=== PATIENT | female | born 1975 | race Caucasian/White ===

== ENCOUNTER 2025-02-17 12:28 | Outpatient (REF) | payer OTHER, SELFPAY ==
--- NOTE | ~2025-02-17 | XR_ITS ---
EXAMINATION: XR CERVICAL SPINE CLINICAL INFORMATION: M54.12 - Radiculopathy, cervical region COMPARISON: None available. TECHNIQUE: AP, and lateral: Flexion, neutral, and extension view x-rays of the cervical spine. FINDINGS: There is no prevertebral soft tissue swelling. The results of this. Anterior fixation there is noted at C5-6 with interbody spacer. There is prosthetic disc at C6-7. Flexion and extension, there is no sign of instability. XR/XR cervical spine 2V IMPRESSION: There is mild reversal of cervical lordosis. This can be related to degenerative changes, positioning, muscle spasm, or posterior soft tissue injury. C5-6 anterior fixation and interbody spacer. C6-7 disc prosthesis. No sign of instability. Electronically signed by: Manuel Munoz MD 02/17/2025 05:44 PM EDT
== END 2025-02-17 12:29 | disposition home or self-care (01) ==
LOC: HO.HOSX 12:28
PROVIDERS: PCP Internal Medicine; Visit Provider Neurological Surgery
DX: Z98.1 Arthrodesis status (principal); M54.12 Radiculopathy, cervical region
CPT/HCPCS: 72040

== ENCOUNTER 2025-02-17 12:28 | Outpatient (AMB) | payer OTHER, SELFPAY ==
--- NOTE | 2025-02-17 12:54 | A.SPINEOV_ITS ---
Vital Signs 02/17/25 12:57 Height 5 ft 4 in Weight 195 lb BMI 33.5 Intake Visit Reasons: Neck pain Intake Note: Ms. Barajas is here today c/o neck pain. Statistical Methods Professor Required: No Allergies terfenadine Allergy (Severe, Verified 02/17/25 12:58) Unknown tramadol Allergy (Severe, Verified 02/17/25 12:58) Unknown Physical Exam Vital Signs: BMI result Body Mass Index 33.5 Assessment & Plan Assessment & Plan (1) Cervical radiculopathy: Code(s): M54.12 - Radiculopathy, cervical region Category: Medical Plan: Dear colleague Thank you for referring Migdaila Barajas to the office today with a chief complaint of neck pain radiating down right arm. HPI: This 50-year-old female with a history of cervical fusion on 06/05/2012 and a lumbar fusion on 11/04/2008 presents with neck pain that radiates through her shoulder into her right arm, dorsum of her lower arm into back of her hands and fingers. The pain started on 12/30/2024 when she was moving objects from the attic. The pain is severe, 9/10. Holding her arm in a flexed position on top of her head alleviates the symptoms. She is taking pregabalin and mwnk-htq-ameksjm medications without success. She is currently doing physical therapy massage therapy that is not helping. His Solu-Medrol Dosepak was not effective. The pain is associated with numbness in his same distribution and weakness of her hand. The weakness has been progressive over the last 2 weeks. The left side is unaffected. The primary care physician requested a CT of the cervical spine which was denied by the insurance company, while she is clearly suffering from a cervical radiculopathy has a history of previous cervical fusion surgery. She can not have an MRI due to a spinal cord stimulator that was placed in 2010 PMH: Migraine, asthma and GERD Medications: Tizanidine, topiramate, amitriptyline, Mirena, but pregabalin, Zephound Wixela, esomeprazole Allergies: Tramadol and terfanadine Social history: . Three children. Employed. Nonsmoker Physical Exam: Pleasant female in obvious agony. Spurling test positive with radiating pain down her right arm. Her sensory deficits in his C7 distribution. Reflexes are symmetrically intact. No pathological reflexes. There is a grade 4/5 hand signs and displays salesperson weakness on the right side. Radiological Studies: An x-ray of the cervical spine obtained today shows status post C5-6 fusion and C6-7 artificial disc placement. There is foraminal stenosis visible. Impression/Plan: This patient is suffering from a right cervical radiculopathy and needs a CT scan of the cervical spine to assess nerve compression from a herniated disc or foraminal stenosis. I will see the patient after the CT scan is done. Thank you for allowing me to participate in your patients care. total time spent was 50 minutes in counseling ,coordination of plan, personal review of imaging, surgical decision making and subsequent plan Julio Younger MD, PhD Spine Fellowship Trained Neurosurgeon Director, [facility] (2) Status post cervical spinal fusion: Code(s): Z98.1 - Arthrodesis status Category: Surgical Plan: e Orders: Orders XR cervical spine 2V Today M54.12 - Radiculopathy, cervical region, Z98.1 - Arthrodesis status CT cervical spine wo IV con Today M54.12 - Radiculopathy, cervical region, Z98.1 - Arthrodesis status Coding Level of Care Code New Pt Level 4 (22188) Diagnoses Cervical radiculopathy M54.12 Status post cervical spinal fusion Z98.1
[2025-02-17 12:57] VITALS: BMI 33.5
--- OUTSIDE RECORDS SUMMARY | 2025-02-17 12:59 | XMS_ITS | Encounter Summary ---
Author Organization [facility] Address [address] [place] [address] Care Team Providers Care Meat Carver Name Role Phone Jose E Chaudhry MD Primary Care Provider [phone] Rich Vick Unavailable Encounter Details Date Type Department Care Team (Late st Contact Info) Description 12/27/2021 Orders Only Cook Documentation Designer [address] [place] [phone] Anel Cope, FLIGHT MECHANIC [address] [place] [address] Social History Tobacco Use Types Packs/Day Years Used Date Smoking Tobacco: Never Smokeless Tobacco: Never Alcohol Use Standard Drinks/Week Comments Yes 0 (1 standard drink = 0.6 oz pur e alcohol) holidays PHQ-2 Answer Date Recorded [facility] PHQ-2 SEVERITY SCORE (Range 0-6) 0 10/19/2021 Comments No Sex and Gender Information Value Date Recorded Sex Assigned at Female 03/17/2020 8:07 AM EDT Legal Sex Female 11:23 AM EDT Gender Identity Female 10/11/2020 8:01 AM EST Sexual Orientation Straight 03/17/2020 8: 07 AM EDT 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 Mamm[facility] [address] [place] [address] 02/25/2025 3:00 PM EDT Minor Procedure/Test [address] [phone] Demetrius Obando, MUCKER OPERATOR [address] [place] [address] 2024 NO APPROVAL NEEDED Jose E Chaudhry MD in [facility] INT MEDICINE 02/26/2025 7:30 AM EDT Minor Procedure/Test [address] [phone] Amanda Boland, MUCKER OPERATOR [address] [place] [address] 2024 NO APPROVAL NEEDED Jose E Chaudhry MD in [facility] INT MEDICINE 03/02/2025 4:00 PM EDT Minor Procedure/Test [address] [phone] Demetrius Obando, MUCKER OPERATOR [address] [place], [place] [phone] NO APPROVAL NEEDED Jose E Chaudhry MD in [facility] INT MEDICINE 03/05/2025 8:30 AM EDT Minor Procedure/Test [address] [phone] Christina Ribera, PT [address] [place] [address] 2024 NO APPROVAL NEEDED Jose E Chaudhry MD in [facility] INT MEDICINE 03/19/2025 3:40 PM EDT CPE - Comprehensive Physical Exam [facility] [address] [place] [phone] Jose E Chaudhry MD [address] [place] [address] CPE documented as of this encounter Procedures * Due to [place] state law, this organization might not be sharing negative HIV tests. Procedure Name Priority Date/Time Associated Diagnosis Comments CHLAMYDIA TRACHOMATIS/N. GONORRHOEAE (GC) RNA, TMA (URINE) Routine 12/27/2021 5:08 PM EDT Screening for STDs (sexually transmitted diseases) documented in this encounter Results * Due to [place] state law, this organization might not be sharing negative HIV tests. * CHLAMYDIA TRACHOMATIS/N. GONORRHOEAE (GC) RNA, TMA (URINE) (12/27/2021 5:08 PM EDT) Chlamydia trachomatis rRNA NOT DETECTED NOT DETECTED [facility] Neisseria Gonorrhoeae rRNA NOT DETECTED NOT DETECTED [facility] COMMENT SEE NOTE [facility] Comment: The analytical performance characteristics of this assay, when used to test SurePath(TM) specimens have been determined by [employer]. The modifications have not been cleared or approved by the FDA. This assay has been validated pursuant to the CLIA regulations and is used for clinical purposes. For additional information, please refer to https://education.CipherMax/faq/SNY010 (This link is being provided for information/ educational purposes only.) 12/27/2021 5:08 PM EDT 12/28/2021 2:25 AM EDT Narrative Resulting Agency Comment [id number] Anel Cope [facility] Final Result Performing Organization Address City/State/[facility] Co de Phone Number [facility] [address] [place] [address] documented in this encounter Visit Diagnoses Diagnosis Screening for STDs (sexually transmitted diseases) Screening examination for venereal disease documented in this encounter Additional Health Concerns Infection Onset Date Last Indicated Resolved Time COVID-19 Confirmed 02/28/2022 02/28/2022 documented as of this encounter Care Teams Meat Carver Relationship Specialty Start Date End Date Jose E Chaudhry MD PCP - General Internal Medicine 11/14/12 Rich Vick [address] [phone] silver miner 09/01/19 documented as of this encounter
--- OUTSIDE RECORDS SUMMARY | 2025-02-17 12:59 | XMS_ITS | Encounter Summary ---
Author Organization [facility] Address [address] [place] [address] Care Team Providers Care Rheologist Name Role Phone Kelton Bobo Primary Care Provider [phone] Encounter Details Date Type Department Care Team (Late st Contact Info) Description 10/26/2011 Clinical Conversion Encounter GENERAL CONVERSION Leandra Pleitez, AWA [address] [place] [address] Social History Tobacco Use Types Packs/Day Years Used Date Smoking Tobacco: Never Assessed Comments Unknown Sex and Gender Information Value Date Recorded Sex Assigned at Not on file Legal Sex Female 12:23 AM EST Gender Identity Not on file Sexual Orientation Not on file documented as of this encounter Miscellaneous Notes * Telephone Encounter - Leandra Pleitez RN - 10/02/2014 10:45 AM EST [id number] MARIE [facility] TELEPHONE MEMORANDUM MICHAEL MARIE 10/26/2011 # [id number] Visit ID: [id number] : 1975 Date of phone call:10/26/11 Nurse making call:Leandra Pleitez Date of procedure:10/16/11 Procedure performed:Rt C7-T1 FRANK #08/2011 Procedure performed by:Dr. Mathis Procedure facility:N Procedure results: Percentage of relief obtained:30% Pain quality similar to pre-procedure or different:similar Pain scale number:6/10 New onset numbness or tingling:no Injection site healing:well Difficulty with bowel or bladder:none Pt. states she has received some relief from her painful symptoms in her neck, but no relief from her arm discomfort. She still has headaches. She was given the option of repeating the injection to see if she could receive additional benefit, but wants to hold off for now. She is scheduled to follow up with Kimberley Costa on 11/05 and will discuss further options at that time. She has our contact information if needed in the future. Leandra Pleitez RN [phone] DMN: J: [id number] CC: Rylee Mathis DO, MPH Kimberley Costa RN,RADIOGRAPHER TECHNOLOGIST Kelton Bobo MD THIS DOCUMENT WAS ELECTRONICALLY AUTHENTICATED BY Leandra Pleitez RN ON 10/26/2011 13:32:17 documented in this encounter Plan of Treatment Not on file documented as of this encounter Visit Diagnoses Not on filedocumented in this encounter Care Teams Rheologist Relationship Specialty Start Date End Date Kelton Bobo [address] [address] PCP - General 06/28/14 documented as of this encounter
--- OUTSIDE RECORDS SUMMARY | 2025-02-17 12:59 | XMS_ITS | Patient Health Record ---
[facility] Address [address] [facility] [address] [place] [address] Care Team Providers Care Telephone Installer Name Role Phone JANA IRBY Primary Care Provider Unavailab Octavia Cabrera Unavailable [phone] Reason For Referral No Information Plan Of Treatment No Information Insurance Providers Payer Name Payer Address Payer Phone Subscriber Number Group Number Insured Name Patient Relationship to Insured Coverage Start Date Coverage End Date [facility] [address] [place] [phone] [id number] MER HARRIS Spouse - patient is the spouse of the insured
== END 2025-02-17 14:54 | disposition home or self-care (01) ==
LOC: HO.HNS 12:28
PROVIDERS: PCP Internal Medicine; Visit Provider Neurological Surgery
DX: M54.12 Radiculopathy, cervical region (principal); Z98.1 Arthrodesis status
CPT/HCPCS: 99204

== ENCOUNTER → 2025-02-17 13:31 | Outpatient (BNV) | payer OTHER, SELFPAY | PROVIDERS: PCP Internal Medicine; Visit Provider Radiology Diagnostic Radiology | DX: M54.12 Radiculopathy, cervical region (principal) | CPT/HCPCS: 72040 ==

== ENCOUNTER 2025-02-24 10:57 | Outpatient (REF) | payer OTHER, SELFPAY ==
--- NOTE | ~2025-02-24 | CT_ITS ---
EXAMINATION: CT CERVICAL SPINE WITHOUT CONTRAST CLINICAL INFORMATION: Radiculopathy, cervical region. COMPARISON: None available. Plain films of the cervical spine 02/17/2025. TECHNIQUE: Spiral CT imaging of the cervical spine performed in axial plane without contrast. Multiplanar reformatted images were constructed from the axial data set. This CT examination was performed using dose optimization techniques as appropriate, variously including the following: *Automated exposure control *Adjustment of mA and/or kV according to patient size (this includes techniques or standardized protocols for targeted exams where dose is matched to indication/reason for exam; i.e. extremities or head) *Use of iterative reconstruction technique FINDINGS: CORONAL ALIGNMENT: -There is a minimal right convex scoliosis. SAGITTAL ALIGNMENT: -There is straightening of the normal lordosis with a minimal reversal centered at C4. -There is a degenerative 2 mm anterolisthesis of C3 on C4 and C4 on C5. Trace anterolisthesis C6 on C7. -Sagittal alignment is otherwise anatomic. C1-C2 AND CRANIOCERVICAL JUNCTION: -Intact and normally aligned. Minimal degenerative changes of the atlantoaxial joint. VERTEBRAL BODIES AND FACETS: -No fracture, compression deformity, traumatic malalignment, or suspicious bone lesion. -There has been prior anterior fusion of C5-6 and C6-7 with disc prostheses. Oblique endplate anchor is present at C5-6. Hardware is intact, well seated, without evidence of loosening. -There is normal facet alignment bilaterally. There are mild degenerative facet changes bilaterally, most notable at C3-4 on the left, and C2-3 on the right. DISCS: -Prostheses at C5-6 and C6-7. -Mild narrowing/degeneration of C3-4, C4-5, and minimal at C7-T1. CENTRAL CANAL: -No evidence of significant central canal narrowing or large disc herniation allowing for modality limitations. NEURAL FORAMEN: -No high-grade neural foraminal narrowing bilaterally. -Mild foraminal narrowing on the left at C3-4. -Mild foraminal narrowing right greater than left C5-6 and C6-7. PREVERTEBRAL AND PARAVERTEBRAL SOFT TISSUES: -There is no prevertebral or paravertebral soft tissue edema, swelling, or abnormal fluid collection. The paraspinous and paravertebral muscles appear normal. -There is a left thyroid goiter with prominent left inferior nodules, measuring up to 2.2 cm diameter. Thyroid ultrasound may be of benefit if felt warranted. LUNG APICES: -Clear bilaterally. No pneumothorax. CT/CT cervical spine wo IV con IMPRESSION: 1. No acute findings of the cervical spine. 2. Intact anterior fusion at C5-6 and C6-7. No complication evident. 3. Mild cervical spondylosis. No evidence of significant disc herniation. No significant central canal or neural foraminal narrowing at any level. 4. Left thyroid goiter with nodules measuring up to 2.2 cm. Correlation with thyroid ultrasound could be considered. Electronically signed by: Manolo Montenegro MD 02/24/2025 12:18 PM EDT
--- OUTSIDE RECORDS SUMMARY | 2025-02-24 12:05 | XMS_ITS | Patient Health Record ---
[facility] [address] [facility] [address] [place] [address] Care Team Providers Care Director Of Campus Recreation Name Role Phone JANA IRBY Primary Care Provider Unavailab Octavia Cabrera Unavailable [phone] Reason For Referral No Information Plan Of Treatment No Information Insurance Providers Payer Name Payer Address Payer Phone Subscriber Number Group Number Insured Name Patient Relationship to Insured Coverage Start Date Coverage End Date [facility] [address] [place] [phone] [id number] MER HARRIS Spouse - patient is the spouse of the insured
--- OUTSIDE RECORDS SUMMARY | 2025-02-24 12:05 | XMS_ITS | Encounter Summary ---
Author Organization [facility] Address [address] [place] [address] Care Team Providers Care Animation Camera Operator Name Role Phone Jose E Chaudhry MD Primary Care Provider [phone] Rich Vick Unavailable Encounter Details Date Type Department Care Team (Late st Contact Info) Description 12/27/2021 Orders Only [place] Rim Fire Priming Operator [address] [place] [phone] Anel Cope, FORM DESIGNER [address] [place] [address] Social History Tobacco Use Types Packs/Day Years Used Date Smoking Tobacco: Never Smokeless Tobacco: Never Alcohol Use Standard Drinks/Week Comments Yes 0 (1 standard drink = 0.6 oz pur e alcohol) holidays PHQ-2 Answer Date Recorded [facility] PHQ-2 SEVERITY SCORE (Range 0-6) 0 10/19/2021 Comments No Sex and Gender Information Value Date Recorded Sex Assigned at Female 03/17/2020 8:07 AM EDT Legal Sex Female 11:23 AM EDT Gender Identity Female 10/11/2020 8:01 AM EST Sexual Orientation Straight 03/17/2020 8: 07 AM EDT 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 Not on file Not on file documented as of this encounter Plan of Treatment Upcoming Encounters Date Type Department Care Team (Late st Contact Info) Description 02/25/2025 3:00 PM EDT Minor Procedure/Test [facility] [address] [place] [address] Demetrius Obando, VOCATIONAL TRAINING DIRECTOR [address] [place] [address] 2024 NO APPROVAL NEEDED Jose E Chaudhry MD in [facility] INT MEDICINE 02/26/2025 7:30 AM EDT Minor Procedure/Test [address] [phone] Amanda Boland, VOCATIONAL TRAINING DIRECTOR [address] [place] [address] 2024 NO APPROVAL NEEDED Jose E Chaudhry MD in [facility] INT MEDICINE 03/02/2025 4:00 PM EDT Minor Procedure/Test [address] [phone] Demetrius Obando, VOCATIONAL TRAINING DIRECTOR [address] [place], [place] [phone] NO APPROVAL NEEDED Jose E Chaudhry MD in [facility] INT MEDICINE 03/05/2025 8:30 AM EDT Minor Procedure/Test [address] [phone] Christina Ribera, PT [address] [place] [address] 2024 NO APPROVAL NEEDED Jose E Chaudhry MD in [facility] INT MEDICINE 03/19/2025 3:40 PM EDT CPE - Comprehensive Physical Exam [place] [facility] [address] [place] [phone] Jose E Chaudhry MD [address] [place] [address] CPE 04/15/2026 7:15 AM EDT Radiology [facility]. Mammography [address] [place] [phone] ROUTINE SCREENING MAMMOGRAM documented as of this encounter Procedures * Due to [place] state law, this organization might not be sharing negative HIV tests. Procedure Name Priority Date/Time Associated Diagnosis Comments CHLAMYDIA TRACHOMATIS/N. GONORRHOEAE (GC) RNA, TMA (URINE) Routine 12/27/2021 5:08 PM EDT Screening for STDs (sexually transmitted diseases) documented in this encounter Results * Due to [place] state law, this organization might not be sharing negative HIV tests. * CHLAMYDIA TRACHOMATIS/N. GONORRHOEAE (GC) RNA, TMA (URINE) (12/27/2021 5:08 PM EDT) Chlamydia trachomatis rRNA NOT DETECTED NOT DETECTED [facility] Neisseria Gonorrhoeae rRNA NOT DETECTED NOT DETECTED [facility] COMMENT SEE NOTE [facility] Comment: The analytical performance characteristics of this assay, when used to test SurePath(TM) specimens have been determined by [employer]. The modifications have not been cleared or approved by the FDA. This assay has been validated pursuant to the CLIA regulations and is used for clinical purposes. For additional information, please refer to https://education.Lolapps/faq/MVW990 (This link is being provided for information/ educational purposes only.) 12/27/2021 5:08 PM EDT 12/28/2021 2:25 AM EDT Narrative Resulting Agency Comment [id number] Anel Cope NP LABORATORY Final Result Performing Organization Address City/State/[facility] Co de Phone Number [facility] [address] [place] [address] documented in this encounter Visit Diagnoses Diagnosis Screening for STDs (sexually transmitted diseases) Screening examination for venereal disease documented in this encounter Additional Health Concerns Infection Onset Date Last Indicated Resolved Time COVID-19 Confirmed 02/28/2022 02/28/2022 documented as of this encounter Care Teams Animation Camera Operator Relationship Specialty Start Date End Date Jose E Chaudhry MD PCP - General Internal Medicine 11/14/[address] Vick [address] [address] kiln car unloader 09/01/19 documented as of this encounter
--- OUTSIDE RECORDS SUMMARY | 2025-02-24 12:05 | XMS_ITS | Encounter Summary ---
Author Organization [facility] Address [address] [place] [address] Care Team Providers Care Line Out Man Name Role Phone Kelton Bobo Primary Care Provider [phone] Encounter Details Date Type Department Care Team (Late st Contact Info) Description 10/26/2011 Clinical Conversion Encounter GENERAL CONVERSION Leandra Pleitez, AWA [address] [place] [address] Social History Tobacco Use Types [...] Pleitez RN - 10/02/2014 10:45 AM EST [id number] MARIE [facility] TELEPHONE MEMORANDUM MICHAEL MARIE 10/26/2011 # [id number] Visit ID: [id number] : 1975 Date of phone call:10/26/11 Nurse [...] needed in the future. Leandra Pleitez RN [phone] DMN: J: [id number] CC: Rylee Mathis DO, MPH Kimberley Costa RN,BOILER ENGINEER Kelton Bobo MD THIS DOCUMENT WAS ELECTRONICALLY AUTHENTICATED BY Leandra Pleitez RN ON 10/26/2011 13:32:17 documented in this encounter Plan of Treatment Not on file documented as of this encounter Visit Diagnoses Not on filedocumented in this encounter Care Teams Line Out Man Relationship Specialty Start Date End Date Kelton Bobo [address] [place] [address] PCP - General 06/28/14 documented as of this encounter
== END 2025-02-24 10:58 | disposition home or self-care (01) ==
LOC: HO.CT 10:57
PROVIDERS: PCP Internal Medicine; Visit Provider Neurological Surgery
DX: M54.12 Radiculopathy, cervical region (principal); Z98.1 Arthrodesis status
CPT/HCPCS: 72125

== ENCOUNTER → 2025-02-24 10:59 | Outpatient (BNV) | payer OTHER, SELFPAY | PROVIDERS: PCP Internal Medicine; Visit Provider Radiology Diagnostic Radiology | DX: E04.2 Nontoxic multinodular goiter (principal); Z98.1 Arthrodesis status | CPT/HCPCS: 72125 ==

== ENCOUNTER 2025-02-24 13:14 | Outpatient (AMB) | payer OTHER, SELFPAY ==
--- NOTE | 2025-02-24 13:18 | HO.SPINEOV ---
Intake Visit Reasons: f/up CT scan Intake Note: Ms. Barajas is here today to discuss the results of her CT [place] [facility] [place] O And M Supervisor Required: No Allergies terfenadine Allergy (Severe, Verified 02/17/25 12:58) Unknown tramadol Allergy (Severe, Verified 02/17/25 12:58) Unknown Assessment & Plan Assessment & Plan (1) Cervical radiculopathy: Code(s): M54.12 - Radiculopathy, cervical region Category: Medical Plan Dear colleague, On 02/24/2025 I saw for follow-up Janeth Garcia to discuss the CT scan results. As you know, she suffering from a right cervical radiculopathy in a C7 distribution. I ordered a CT scan of the cervical spine, which does not show a compression of the nerve roots as an explanation. Therefore, she suffering from a noncompressive cervical radiculopathy, which usually should resolve over time. She understands that I am not able to help her without a surgical lesion. I spent 20 minutes in his consult to review the imaging and discussing the findings. Julio Younger MD, PhD Spine Fellowship Trained Neurosurgeon Director, [facility] Coding Level of Care Code Est Pt Level 3 (05995) Diagnoses Cervical radiculopathy M54.12
== END 2025-02-24 14:31 | disposition home or self-care (01) ==
LOC: HO.HNS 13:14
PROVIDERS: PCP Internal Medicine; Visit Provider Neurological Surgery
DX: M54.12 Radiculopathy, cervical region (principal)
CPT/HCPCS: 99213